=== PATIENT | male | born 1985 | race Two or more races ===

== ENCOUNTER 2016-10-15 23:01 | Emergency (ER) | payer OTHER ==
--- NOTE | ~2016-10-15 | CR172 ---
[facility]. [facility] A Service of [facility] & [facility] RADIOLOGY TEXT RESULTS PATIENT: DAVON FAULKNER LOCATION: SED : 81 UNIT #: [id number] AGE: [address]: ANDI DIAZ SEX: M ORDER DR: [id number] [place] [id number] E MR#: [id number] Acc #: [id number] NAME: DAVON FAULKNER : 1985 SEX: M STUDY DATE/TIME: 10/15/2016 22:55 UNIT: SED ROOM: STUDY DESCRIPTION: CR Knee 3 Views Lt Attending Physician: Andi Diaz Ordering Physician: Physician Non-Staff Primary Care Physician: Primary Care Physician No MEDICAL IMAGING REPORT This report is preliminary unless electronic signature is present. EXAM Left knee, 3 views COMPARISON June 15, 2011. INDICATIONS 30-year-old male with left knee pain and swelling after falling out of the trunk and hitting his left knee yesterday. FINDINGS There is a fabella, a normal anatomic variant. Bones are anatomically aligned. There is no evidence of acute fracture. There is a large suprapatellar effusion. IMPRESSION Large suprapatellar effusion. Otherwise normal radiographs of the left knee. Dictated by... Efraín Sainz M.D. THIS IS AN ELECTRONICALLY VERIFIED REPORT Efraín Sainz M.D. at 10/20/2016 7:32 AM Karla TD: 10/16/2016 07:08 JOB #: [id number] MEDICAL IMAGING REPORT
[~2016-10-15 23:01] MED LIST: NO MEDICATIONS; ULTRAM PO
== END 2016-10-16 00:04 | disposition home or self-care (01) ==
LOC: SED 23:01
DX: M25.462 Effusion, left knee (principal); F17.210 Nicotine dependence, cigarettes, uncomplicated
CPT/HCPCS: 29530; 73562; 99283